=== PATIENT | female | born 1930 | race Caucasian/White ===

== ENCOUNTER 2016-11-22 07:22 | Day surgery (SDC) | payer MEDICARE, BC ==
[2016-11-22] MEDS ORDERED: Dextrose 5%-Lactated Ringers 1,000 ML IV SCH (08:00)
[2016-11-22] MEDS ORDERED: Propofol 200 MG/20 ML SDV ONE (08:19)
[2016-11-22] MEDS ORDERED: fentaNYL 100 MCG/2 ML SDV ONE (08:19)
[2016-11-22 11:07] VITALS: BP 132/68
--- NOTE | 2016-11-25 10:53 | OR ---
DATE OF PROCEDURE: 11/22/2016 PREOPERATIVE DIAGNOSIS: Left lower quadrant pain associated with narrowing of stools. POSTOPERATIVE DIAGNOSIS: Extensive left-sided diverticulosis causing a generalized narrowing of sigmoid colon. OPERATIVE PROCEDURE: Flexible colonoscopy. ANESTHESIA: IV sedation. INDICATION FOR PROCEDURE: An 86-year-old female, with history of previous colon polyps, along with a perforation that occurred during previous colonoscopy, presents with change in bowel habits with narrowing of stools, along with some persistent left lower quadrant discomfort. The patient presently on Colace 100 mg 2 tablets daily, along with intermittent MiraLAX. Plan is to proceed with colonoscopy with biopsies or polypectomy as indicated. Potential risks including bleeding and perforation were discussed and the patient wishes to proceed. DETAILS OF PROCEDURE: The patient was taken to the operating room and placed in a left lateral decubitus position. IV sedation was administered, after which the initial digital rectal exam was performed and was unremarkable. Colonoscope was then passed into the rectum with retroflexion revealing uncomplicated hemorrhoidal columns. The scope was then passed to level of the cecum. The prep was fairly good. Findings included an area of generalized narrowing in the sigmoid colon associated with extensive diverticulosis. There is no diverticulitis per se and no strictures that would be associated with true obstruction. The remainder of the colon was unremarkable. No additional polyps or signs of neoplasia and no areas of colitis. The scope was withdrawn. The above findings were reconfirmed, and the procedure was then concluded. The plan will be to add senna 2 tablets p.o. q.a.m. to help with the constipation issue and is instructed to follow up with Ady Baltazar PA-C, in [facility] in 3 to 4 weeks. Jerry Grimm MD /[id number]
== END 2016-11-22 10:45 | disposition home or self-care (01) ==
LOC: JP.SDS 07:22
PROVIDERS: ATTEND Surgery
DX: K57.30 Diverticulosis of large intestine without perforation or abscess without bleeding (principal); I25.10 Atherosclerotic heart disease of native coronary artery without angina pectoris; I12.9 Hypertensive chronic kidney disease with stage 1 through stage 4 chronic kidney disease, or unspecified chronic kidney disease; N18.9 Chronic kidney disease, unspecified; J44.9 Chronic obstructive pulmonary disease, unspecified; I71.4 Abdominal aortic aneurysm, without rupture; Z88.0 Allergy status to penicillin; Z88.2 Allergy status to sulfonamides; Z88.8 Allergy status to other drugs, medicaments and biological substances
CPT/HCPCS: 45378; J2704; J3010; J7042

== ENCOUNTER 2017-04-24 12:02 | Emergency (ER) | payer MEDICARE, BC ==
[2017-04-24] MEDS ORDERED: amLODIPine 2.5 MG Tab PO ONE (15:40)
--- NOTE | 2017-04-24 15:46 | EDM.PDOC ---
ED HPI GENERAL MEDICAL PROBLEM - General Chief Complaint: General Stated Complaint: HEADACHE; WEAKNESS Time Seen by Provider: 04/24/17 12:40 Source of Information: Reports: Patient, Family History Limitations: Reports: No Limitations - History of Present Illness INITIAL COMMENTS - FREE TEXT/NARRATIVE: pt woke up this am with a severe headache. She took a tylenol and had some relief. She went to [facility] and she felt very dizzy as if she could pass out. She states the headache is better. She had no abdomanal pain. 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 Onset: Today Duration: Hour(s): Location: Reports: Other (pt ws quite dizzy while at [facility]. ) Associated Symptoms: Reports: Headaches Treatments BRINE PURIFIER: Reports: Acetaminophen Headache Pain Score (Numeric/FACES): 2 - Related Data Allergies Allergy/AdvReac Type Severity Reaction Status Date / Time codeine Allergy Itching Verified 04/24/17 13:01 methocarbamol [From Robaxin] Allergy Itching Verified 04/24/17 13:01 Penicillins Allergy Itching Verified 04/24/17 13:01 Sulfa (Sulfonamide Allergy Itching Verified 04/24/17 13:01 Antibiotics) tramadol HCl [From Ultram] Allergy Rash Verified 04/24/17 13:01 Home Meds: Home Meds Aspirin [Adult Low Dose Aspirin EC] 81 mg PO DAILY 07/02/13 [History] Ranitidine HCl [Zantac] 150 mg PO DAILY 07/02/13 [History] Tiotropium [Spiriva HandiHaler] 1 puff INH DAILY 07/02/13 [History] amLODIPine Besylate [Norvasc] 5 mg PO DAILY 07/02/13 [History] Acetaminophen [Tylenol Extra Strength] 500 mg PO BID 04/11/15 [History] Losartan Potassium 25 mg PO BEDTIME 04/11/15 [History] Polyethylene Glycol 3350 [Miralax] 17 gm PO BEDTIME 11/22/16 [History] Sennosides [Senna] 1 tab PO DAILY 04/24/17 [History] Past Medical History HEENT History: Reports: Cataract, Impaired Vision Cardiovascular History: Reports: Aneurysm, CAD, Heart Murmur, High Cholesterol, Hypertension, [place], SOB on Exertion, Stents Respiratory History: Reports: COPD, Pneumonia, Recurrent, SOB Other Respiratory History: emphysema Gastrointestinal History: Reports: Bowel Obstruction, Chronic Constipation, Chronic Diarrhea, Colon Polyp, Gastritis, GERD, Hemorrhoids, Irritable Bowel Syndrome, PUD CRANIOLOGIST History: Reports: Endometriosis, Musculoskeletal History: Reports: Arthritis, Back Pain, Chronic, Osteoarthritis , Osteoporosis Neurological History: Reports: Headaches, Chronic, Migraines, Vertigo Psychiatric History: Reports: Depression, Psych Hospitalization(s) Hematologic History: Reports: Blood Transfusion(s) Oncologic (Cancer) History: Reports: Lymphoma 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 Dermatologic History: Reports: Other (See Below) Other Dermatologic History: legs are covered in brown spots- can't remember name - Infectious Disease History Infectious Disease History: Reports: Chicken Pox, Measles, Mumps - Past Surgical History HEENT Surgical History: Reports: Adenoidectomy, Cataract Surgery, LASIK, Tonsillectomy Cardiovascular Surgical History: Reports: Carotid Stents GI Surgical History: Reports: Appendectomy, Cholecystectomy, Colonoscopy, EGD, Other (See Below) Other GI Surgeries/Procedures: spleenectomy Female Surgical History: Reports: Breast Biopsy, D&C, Hysterectomy, Salpingo- Oophorectomy Musculoskeletal Surgical History: Reports: Arthroscopic Knee, Hip Replacement Social & Family History - Family History Family Medical History: Noncontributory - Tobacco Use Smoking Status *Q: Never Smoker Years of Tobacco use: 50 Used Tobacco, but Quit: Yes Month Tobacco Last Used: 1987 Second Hand Smoke Exposure: No - Caffeine Use Caffeine Use: Reports: Tea - Alcohol Use Days Per Week of Alcohol Use: 0 - Recreational Drug Use Recreational Drug Use: No ED ROS GENERAL - Review of Systems Review Of Systems: See Below Constitutional: Reports: No Symptoms HEENT: Reports: No Symptoms Respiratory: Reports: No Symptoms Cardiovascular: Reports: No Symptoms Endocrine: Reports: No Symptoms GI/Abdominal: Reports: No Symptoms : Reports: No Symptoms Skin: Reports: No Symptoms Neurological: Reports: Dizziness, Other (pt felt like she was going to pass out in [facility]. ) ED EXAM, GENERAL - Physical Exam Exam: See Below Free Text/Narrative:: pt had a severe headache early this am. She went to [facility] and felt like she was going to pass out. Exam Limited By: No Limitations General Appearance: Alert, No Apparent Distress, Anxious, Other (pupils equal and reactive. ) Ears: Normal TMs Nose: Normal Inspection Throat/Mouth: Normal Inspection Head: Atraumatic Neck: Normal Inspection Respiratory/Chest: No Respiratory Distress Cardiovascular: Regular Rate, Rhythm GI/Abdominal: Soft, Non-Tender (Female) Exam: Deferred Rectal (Female) Exam: Deferred Back Exam: Normal Inspection Extremities: Normal Inspection Neurological: Alert, Oriented, Normal Cognition Psychiatric: Normal Affect Course - Vital Signs Last Recorded V/S: Last Vital Signs Temp 36.6 C 04/24/17 15:37 Pulse 70 04/24/17 15:37 Resp 16 04/24/17 15:37 BP 174/94 H 04/24/17 15:37 Pulse Ox 94 L 04/24/17 15:37 Orthostatic Blood Pressure [ 157/87 Standing] Orthostatic Blood Pressure [ 178/91 Sitting] Orthostatic Blood Pressure [ 168/79 Supine] - Orders/Labs/Meds Orders: Active Orders 24 hr Category Date Time Status EKG Documentation Completion [RC] ASDIRECTED Care 04/24/17 13:16 Active Orthostatic Vital Signs [RC] ASDIRECTED Care 04/24/17 13:16 Active Head wo Cont [CT] Stat Exams 04/24/17 14:30 Taken EKG 12 Lead [EK] Routine Ther 04/24/17 13:16 Ordered Labs: Laboratory Tests 04/24/17 04/24/17 04/24/17 Range/Units 13:30 13:30 13:38 WBC 8.6 (4.5-11.0) K/uL RBC 4.33 (3.30-5.50) M/uL Hgb 13.8 (12.0-15.0) g/dL Hct 41.2 (36.0-48.0) % MCV 95 (80-98) fL MCH 32 H (27-31) pg MCHC 34 (32-36) % Plt Count 207 (150-400) K/uL Neut % (Auto) 64 (36-66) % Lymph % (Auto) 24 (24-44) % [place] % (Auto) 10 H (2-6) % Eos % (Auto) 1 L (2-4) % Baso % (Auto) 1 (0-1) % Sodium 137 L (140-148) mmol/L Potassium 3.7 (3.6-5.2) mmol/L Chloride 101 (100-108) mmol/L Carbon Dioxide 28 (21-32) mmol/L Anion Gap 11.7 (5.0-14.0) mmol/L BUN 11 (7-18) mg/dL Creatinine 0.9 (0.6-1.0) mg/dL Est Cr Clr Drug Dosing 37.12 mL/min Estimated GFR (MDRD) 59 L (>60) Glucose 89 (74-106) mg/dL Calcium 9.2 (8.5-10.1) mg/dL Total Bilirubin 0.3 (0.2-1.0) mg/dL AST 20 (15-37) U/L ALT 14 (12-78) U/L Alkaline Phosphatase 73 (46-116) U/L Total Protein 8.0 (6.4-8.2) g/dL Albumin 3.5 (3.4-5.0) g/dL Globulin 4.5 H (2.3-3.5) g/dL Albumin/Globulin Ratio 0.8 L (1.2-2.2) Urine Color Yellow Urine Appearance Clear Urine pH 8.0 (4.5-8.0) Ur Specific [place] 1.010 (1.008-1.030) Urine Protein Negative (NEGATIVE) mg/dL Urine Glucose (UA) Normal (NEGATIVE) mg/dL Urine Ketones Negative (NEGATIVE) mg/dL Urine Occult Blood Negative (NEGATIVE) Urine Nitrite Negative (NEGATIVE) Urine Bilirubin Negative (NEGATIVE) Urine Urobilinogen Normal (NORMAL) mg/dL Ur Leukocyte Esterase Negative (NEGATIVE) Urine RBC Not seen (0-5) Urine WBC Not seen (0-5) Ur Epithelial Cells Not seen Amorphous Sediment Rare Urine Bacteria Not seen Urine Mucus Not seen Meds: Medications Discontinued Medications Generic Name Dose Route Start Last Admin Trade Name Dagobertoq PRN Reason Stop Dose Admin Amlodipine Besylate 2.5 mg 04/24/17 15:40 Norvasc PO 04/24/17 15:41 ONETIME ONE - Re-Assessments/Exams Free Text/Narrative Re-Assessment/Exam: 04/24/17 15:51 pt had a cat scan of the head which showed no acute problems, Her lab work looked good. Her blood pressure remained on the higher side. She was given amlodpine 2.5 mg in er. will increase to 7.5 at nite, Departure - Departure Time of Disposition: 15:43 Disposition: Home, Self-Care 01 Condition: Fair Clinical Impression: Hypertension - Discharge Information Referrals: Ady Baltazar PA-C [Primary Care Provider] - Forms: ED Department Discharge Care Plan Goals: appt with Ady Baltazar of Tuesday, Increase amlodipine to 1 and 1/2 tabs at bedtime. Do not take the extra 1/2tonight because it was given in er. Start with the increasd dose tomorrow nite. - My Orders Last 24 Hours: My Active Orders 04/24/17 13:16 EKG Documentation Completion [RC] ASDIRECTED Orthostatic Vital Signs [RC] ASDIRECTED EKG 12 Lead [EK] Routine 04/24/17 14:30 Head wo Cont [CT] Stat - Assessment/Plan Last 24 Hours: My Active Orders 04/24/17 13:16 EKG Documentation Completion [RC] ASDIRECTED Orthostatic Vital Signs [RC] ASDIRECTED EKG 12 Lead [EK] Routine 04/24/17 14:30 Head wo Cont [CT] Stat
[2017-04-24 16:18] VITALS: BP 166/89
== END 2017-04-24 16:30 | disposition home or self-care (01) ==
LOC: JP.ED 12:02
DX: I10 Essential (primary) hypertension (principal); I25.10 Atherosclerotic heart disease of native coronary artery without angina pectoris; J43.9 Emphysema, unspecified; E78.00 Pure hypercholesterolemia, unspecified; I25.2 Old myocardial infarction; K59.09 Other constipation; M19.90 Unspecified osteoarthritis, unspecified site; G43.909 Migraine, unspecified, not intractable, without status migrainosus; K21.9 Gastro-esophageal reflux disease without esophagitis; Z88.0 Allergy status to penicillin; Z88.2 Allergy status to sulfonamides; Z88.5 Allergy status to narcotic agent; Z88.6 Allergy status to analgesic agent; Z79.82 Long term (current) use of aspirin; Z79.899 Other long term (current) drug therapy; Z90.89 Acquired absence of other organs; Z90.49 Acquired absence of other specified parts of digestive tract; Z90.710 Acquired absence of both cervix and uterus; Z96.649 Presence of unspecified artificial hip joint; Z87.891 Personal history of nicotine dependence
CPT/HCPCS: 36415; 70450; 80053; 81001; 85025; 93005; 99285; A9270; 93010; 99284

== ENCOUNTER 2018-04-10 07:46 | Day surgery (SDC) | payer MEDICARE, BC ==
[2018-04-10] MEDS ORDERED: Propofol 200 MG/20 ML SDV ONE ×2 (08:15→09:35)
[2018-04-10] MEDS ORDERED: Lactated Ringers 1,000 ML IV SCH (08:30)
[2018-04-10] MEDS ORDERED: cefOXitin 2 GM in Sodium Chloride 0.9% 50 ML IV ONE (09:30)
[2018-04-10 12:51] VITALS: BP 162/77
--- NOTE | 2018-04-10 13:11 | OR ---
DATE OF PROCEDURE: 04/10/2018 PREOPERATIVE DIAGNOSIS: History of tubular adenomas. POSTOPERATIVE DIAGNOSES: 1. Two colon polyps. 2. History of adenomatous colon polyps. PROCEDURE PERFORMED: Colonoscopy to the cecum with biopsy resection of small cecal and biopsy resection of small right colon polyps. SURGEON: Celio Mays MD. ANESTHESIA: IV anesthesia with monitored anesthesia care. INDICATION: This 87-year-old white female is referred for a colonoscopy because of a history of tubular adenomas. She last underwent a colonoscopy three years ago. I counseled her for the procedure, including risks and alternatives, and she gave her informed consent to proceed. DESCRIPTION OF PROCEDURE: The patient was placed in the left lateral decubitus position. IV anesthesia was administered by the Anesthesia Service. Time-out was held. A rectal exam was performed, which was unremarkable. The flexible video Olympus colonoscope was introduced through her anus, up her rectum and out her colon all the way to the cecum. In the cecum, we saw a small sessile polyp. This was removed with several bites of the biopsy forceps. The scope was brought back into the right colon. Another smaller polyp was seen, which was removed with the biopsy forceps. The scope was then withdrawn further with no other lesions noted. The scope would not retroflex in the rectum. The scope was then removed. She tolerated the procedure well. Celio Mays MD /[id number] MTDD
== END 2018-04-10 11:15 | disposition home or self-care (01) ==
LOC: JP.SDS 07:46
PROVIDERS: ATTEND Surgery
DX: Z12.11 Encounter for screening for malignant neoplasm of colon (principal); D12.0 Benign neoplasm of cecum; K51.40 Inflammatory polyps of colon without complications; N18.9 Chronic kidney disease, unspecified; J44.9 Chronic obstructive pulmonary disease, unspecified; Z86.010 Personal history of colon polyps
CPT/HCPCS: 45380; J0694; J2704; J7050; J7120; 88305

== ENCOUNTER 2019-03-02 10:50 | Emergency (ER) | payer MEDICARE, BC ==
[2019-03-02 11:14] VITALS: BP 154/71
--- NOTE | 2019-03-02 12:31 | EDM.PDOC ---
ED HPI GENERAL MEDICAL PROBLEM - General Chief Complaint: Back Pain or Injury Stated Complaint: BACK PAIN Time Seen by Provider: 03/02/19 12:10 Source of Information: Reports: Patient History Limitations: Reports: No Limitations - History of Present Illness INITIAL COMMENTS - FREE TEXT/NARRATIVE: 80-year-old female struggling with intense thoracic and lower back pain for the last several days. She has chronic back pain and fibromyalgia, and 10 days ago had a AAA repair. She initially was doing well but over the past 2 or 3 days her back has been bothering her when she moves and she is out of her stronger pain medicines. No fevers or chills, or appetite is good, no vomiting. Denies abdominal pain in her wounds are healing well. A home health nurse was assessing her today and found her to be in significant discomfort so called her primary provider and he told her to send her to the emergency room. Onset: Gradual Duration: Day(s): (Worsening for the past 2-3 days) Location: Reports: Back (Thoracic and lumbar) Worsens with: Reports: Movement Associated Symptoms: Reports: Malaise. Denies: Chest Pain, Cough, Fever/Chills , Loss of Appetite, Nausea/Vomiting, Shortness of Breath Back Pain Score (Numeric/FACES): 9 - Related Data Allergies Allergy/AdvReac Type Severity Reaction Status Date / Time codeine Allergy Itching Verified 03/02/19 11:12 methocarbamol [From Robaxin] Allergy Itching Verified 03/02/19 11:12 Penicillins Allergy Itching Verified 03/02/19 11:12 [id number] Reductase Allergy Muscle Verified 03/02/19 11:12 Inhibitor Aches Sulfa (Sulfonamide Allergy Itching Verified 03/02/19 11:12 Antibiotics) tramadol HCl [From Ultram] Allergy Rash Verified 03/02/19 11:12 Home Meds: Home Meds Aspirin [Adult Low Dose Aspirin EC] 81 mg PO DAILY 07/02/13 [History] Ranitidine HCl [Zantac] 75 mg PO BID PRN 07/02/13 [History] Tiotropium [Spiriva HandiHaler] 1 puff INH DAILY 07/02/13 [History] amLODIPine Besylate [Norvasc] 5 mg PO DAILY 07/02/13 [History] Acetaminophen [Tylenol Extra Strength] 500 mg PO Q6H PRN 04/11/15 [History] Losartan Potassium 25 mg PO BEDTIME 04/11/15 [History] Polyethylene Glycol 3350 [Miralax] 17 gm PO BEDTIME PRN 11/22/16 [History] Sennosides [Senna] 1 tab PO DAILY PRN 04/24/17 [History] Calcium Polycarbophil [Fibercon] 625 mg PO BID 04/06/18 [History] Docusate Sodium [Colace] 2 cap PO BEDTIME 04/06/18 [History] Past Medical History HEENT History: Reports: Cataract, Impaired Vision Cardiovascular History: Reports: Aneurysm, CAD, Heart Murmur, High Cholesterol, Hypertension, [place], SOB on Exertion, Stents Respiratory History: Reports: COPD, Pneumonia, Recurrent, SOB Other Respiratory History: emphysema Gastrointestinal History: Reports: Chronic Constipation, Chronic Diarrhea, Colon Polyp, Gastritis, GERD, Hemorrhoids, Irritable Bowel Syndrome, PUD Genitourinary History: Reports: None CHIEF ACCOUNTANT History: Reports: Endometriosis, Musculoskeletal History: Reports: Arthritis, Back Pain, Chronic, Osteoarthritis , Osteoporosis Neurological History: Reports: Headaches, Chronic, Migraines, Vertigo Psychiatric History: Reports: Depression, Psych Hospitalization(s) Endocrine/Metabolic History: Reports: None Hematologic History: Reports: Blood Transfusion(s) Immunologic History: Reports: None Oncologic (Cancer) History: Reports: Lymphoma 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 Dermatologic History: Reports: Other (See Below) Other Dermatologic History: legs are covered in brown spots- can't remember name - Infectious Disease History Infectious Disease History: Reports: Chicken Pox, Herpes, Influenza, Measles, Mumps - Past Surgical History Head Surgeries/Procedures: Reports: None HEENT Surgical History: Reports: Adenoidectomy, Cataract Surgery, LASIK, Tonsillectomy Cardiovascular Surgical History: Reports: AAA Repair, Carotid Stents Respiratory Surgical History: Reports: None GI Surgical History: Reports: Appendectomy, Cholecystectomy, Colonoscopy, EGD, Other (See Below) Other GI Surgeries/Procedures: spleenectomy Female Surgical History: Reports: Breast Biopsy, D&C, Hysterectomy, Salpingo- Oophorectomy Endocrine Surgical History: Reports: None Neurological Surgical History: Reports: None Musculoskeletal Surgical History: Reports: Arthroscopic Knee, Hip Replacement, Knee Replacement Oncologic Surgical History: Reports: Biopsy of Breast Social & Family History - Family History Family Medical History: Noncontributory - Tobacco Use Smoking Status *Q: Former Smoker Used Tobacco, but Quit: Yes Month/Year Tobacco Last Used: 1988 Second Hand Smoke Exposure: No - Caffeine Use Caffeine Use: Reports: None - Recreational Drug Use Recreational Drug Use: No ED ROS GENERAL - Review of Systems Review Of Systems: See Below Constitutional: Reports: Malaise. Denies: Fever, Chills, Decreased Appetite HEENT: Reports: No Symptoms Cardiovascular: Denies: Chest Pain GI/Abdominal: Denies: Abdominal Pain, Nausea, Vomiting Musculoskeletal: Reports: Back Pain Skin: Reports: No Symptoms Neurological: Denies: Paresthesia ED EXAM,LOWER BACK PAIN/INJURY - Physical Exam Exam: See Below Exam Limited By: No Limitations General Appearance: Alert, No Apparent Distress, Other (Looks fairly comfortable when sitting still) Head: Atraumatic Neck: Normal Inspection, Supple Respiratory/Chest: No Respiratory Distress, Lungs Clear Back Exam: Other (She is very tender to palpation along the parathoracic and paralumbar muscles, including percussion of the vertebral bodies over the thoracic spine.) Extremities: Normal Inspection. No: No Pedal Edema Neurological: Alert, No Motor/Sensory Deficits, Oriented x 3 Course - Vital Signs Last Recorded V/S: Last Vital Signs Temp 98.7 F 03/02/19 11:15 Pulse 90 03/02/19 11:15 Resp 18 03/02/19 11:15 BP 154/71 H 03/02/19 11:15 Pulse Ox 92 L 03/02/19 11:15 - Re-Assessments/Exams Free Text/Narrative Re-Assessment/Exam: 03/02/19 16:33 There has been no trauma, I have no reason to believe there is an acute injury. She may be stiffening from lack of activity after her surgery. I did refill 12 Percocet doses for her to take through the weekend and encouraged her to try to increase activity as tolerated and recheck early next week if not improving satisfactorily. Departure - Departure Time of Disposition: 12:51 Disposition: Home, Self-Care 01 Clinical Impression: Back pain Qualifiers: Back pain location: thoracic back pain Chronicity: unspecified Back pain laterality: bilateral Qualified Code(s): M54.6 - Pain in thoracic spine - Discharge Information Instructions: Acute Back Pain, Adult Referrals: Kaasam,Sriveer, MD [Primary Care Provider] - Forms: ED Department Discharge Care Plan Goals: Continue your medications as prescribed, and add Percocet if needed for extra pain control. Recheck next Tuesday or Tuesday if not improving satisfactorily, increase activity as tolerated.
== END 2019-03-02 12:52 | disposition home or self-care (01) ==
LOC: JP.ED 10:50
DX: M54.6 Pain in thoracic spine (principal); M54.5 Low back pain; I10 Essential (primary) hypertension; E78.00 Pure hypercholesterolemia, unspecified; I25.10 Atherosclerotic heart disease of native coronary artery without angina pectoris; J44.9 Chronic obstructive pulmonary disease, unspecified; F32.9 Major depressive disorder, single episode, unspecified; Z79.82 Long term (current) use of aspirin; Z87.891 Personal history of nicotine dependence; Z79.899 Other long term (current) drug therapy; Z88.5 Allergy status to narcotic agent; Z88.0 Allergy status to penicillin; Z88.8 Allergy status to other drugs, medicaments and biological substances
CPT/HCPCS: 99282; 99283

== ENCOUNTER 2019-04-23 07:00 | Day surgery (SDC) | payer MEDICARE, BC ==
[2019-04-23] MEDS ORDERED: Lactated Ringers 1,000 ML IV SCH (07:30)
[2019-04-23] MEDS ORDERED: Levofloxacin/Dextrose 5%-Water 500 MG in Premix Bag 1 BAG IV ONE (08:00)
[2019-04-23] MEDS ORDERED: Clindamycin Phosphate 900 MG in Sodium Chloride 0.9% 100 ML IV ONE (08:00)
[2019-04-23] MEDS ORDERED: Propofol 200 MG/20 ML SDV ONE ×2 (08:19→09:10)
[2019-04-23] MEDS ORDERED: fentaNYL 100 MCG/2 ML SDV ONE (08:19)
[2019-04-23 11:01] VITALS: BP 134/71; PULSE 71
--- NOTE | 2019-04-23 15:16 | OR ---
DATE OF PROCEDURE: 04/23/2019 PREOPERATIVE DIAGNOSIS: History of sessile tubular adenoma. POSTOPERATIVE DIAGNOSES: Sessile polyps, cecum, x2 and proximal right colon; history of sessile tubular adenoma; and diverticulosis. PROCEDURES PERFORMED: Colonoscopy to the cecum with biopsy and snare cautery polypectomy of sessile cecal polyps x2 and biopsy resection of sessile proximal right colon polyp. ANESTHESIA: IV anesthesia with monitored anesthesia care. SURGEON: Celio Mays MD INDICATION: This 88-year-old white female is here for a colonoscopy. A year ago, she underwent a colonoscopy with a sessile tubular adenoma removed from her cecum. We wanted to check that again. I counseled her for the procedure, including risks and alternatives, and she gave her informed consent to proceed. DESCRIPTION OF PROCEDURE: The patient was placed in the left lateral decubitus position. IV anesthesia was administered by the Anesthesia Service. Time-out was held. A rectal exam was performed, which was unremarkable. The flexible video Olympus colonoscope was introduced through her anus, up her rectum and out her colon all the way to the cecum. En route, we saw multiple left-sided diverticula. In the cecum, we saw two sessile lesions. They were initially biopsied and then each separately removed with the snare. The snare was passed about their base, they were elevated up away from the bowel wall, and amputated as electrocautery was applied. The polyps were separately aspirated up through the scope and captured in a polyp trap. They were sent as two specimens. The residual polyp tissue was removed with the biopsy forceps. The scope was then slowly withdrawn examining the mucosa throughout. In the proximal right colon, we saw another small sessile polyp. This was removed with the biopsy forceps. The scope was withdrawn further with no other lesions noted, other than the previously mentioned diverticula. The scope was retroflexed in the rectum with the distal rectum appearing unremarkable. The scope was straightened. We did encounter what appeared to be an old stitch in the rectum. The scope was then removed. She tolerated the procedure well. Celio Mays MD /[id number] MTDD
== END 2019-04-23 11:27 | disposition home or self-care (01) ==
LOC: JP.SDS 07:00
PROVIDERS: ATTEND Surgery
DX: Z09 Encounter for follow-up examination after completed treatment for conditions other than malignant neoplasm (principal); D12.2 Benign neoplasm of ascending colon; D12.0 Benign neoplasm of cecum; K57.30 Diverticulosis of large intestine without perforation or abscess without bleeding; K21.9 Gastro-esophageal reflux disease without esophagitis; I12.9 Hypertensive chronic kidney disease with stage 1 through stage 4 chronic kidney disease, or unspecified chronic kidney disease; N18.9 Chronic kidney disease, unspecified; I25.10 Atherosclerotic heart disease of native coronary artery without angina pectoris; C85.90 Non-Hodgkin lymphoma, unspecified, unspecified site; E78.00 Pure hypercholesterolemia, unspecified; J43.9 Emphysema, unspecified; R42 Dizziness and giddiness; Z86.010 Personal history of colon polyps; Z87.891 Personal history of nicotine dependence
CPT/HCPCS: 45380; 45385; J1956; J2704; J3010; J3490; J7030; J7120; 88305

== ENCOUNTER 2020-04-17 07:44 | Day surgery (SDC) | payer MEDICARE, BC ==
[2020-04-17] MEDS ORDERED: Sodium Chloride 0.9% 1,000 ML IV SCH (08:30)
[2020-04-17] MEDS ORDERED: Propofol 200 MG/20 ML SDV ONE ×2 (09:06→10:07)
[2020-04-17] MEDS ORDERED: fentaNYL 100 MCG/2 ML SDV ONE (09:06)
[2020-04-17 11:42] VITALS: BP 154/71; PULSE 67
--- NOTE | 2020-04-17 13:00 | OR ---
DATE OF PROCEDURE: 04/17/2020 SURGEON: Zane Morales MD PROCEDURE: Colonoscopy. FINDINGS: 1. Ascending colon polyp, approximately 5 mm, completely removed using hot snare wire device. 2. Cecal polyp, completely removed piecemeal using cold biopsy forceps and then tattoo Lisseth Ink. COMPLICATIONS: None. TEAR DOWN WORKER: None. ANESTHESIA: MAC. PREOPERATIVE DIAGNOSIS: Screening colonoscopy. POSTOPERATIVE DIAGNOSIS: Screening colonoscopy. RISKS: Risks, benefits, alternatives, limitations including, but not limited to infection, bleeding, and perforation were explained to the patient, who wished to proceed. PROCEDURE IN DETAIL: The patient was placed in left lateral decubitus position. Colonoscope was introduced and advanced atraumatically to the ileocecal valve. After biopsies were performed and tattooed as described, scope was brought back through the remainder of the colon, retroflexed. No other abnormalities were noted. The patient tolerated the procedure well. Zane Morales MD /[id number]
== END 2020-04-17 11:44 | disposition home or self-care (01) ==
LOC: JP.SDS 07:44
PROVIDERS: ATTEND Surgery
DX: Z12.11 Encounter for screening for malignant neoplasm of colon (principal); D12.2 Benign neoplasm of ascending colon; D12.0 Benign neoplasm of cecum; J44.9 Chronic obstructive pulmonary disease, unspecified; I12.9 Hypertensive chronic kidney disease with stage 1 through stage 4 chronic kidney disease, or unspecified chronic kidney disease; N18.9 Chronic kidney disease, unspecified; Z86.010 Personal history of colon polyps
CPT/HCPCS: 45380; 45381; 45385; 88305; J2704; J3010; J7030